=== PATIENT | male | born 1980 | race Caucasian/White ===

== ENCOUNTER 2023-08-30 07:16 | Emergency (ER) | payer BC ==
[2023-08-30 07:46] VITALS: BMI 34.7
[2023-08-30 08:47] LABS: BASO % 0.9 % (0-2.0); HEMATOCRIT 43.5 % (35.4-49); HEMOGLOBIN 14.6 GM/dL (11.7-16.9); LYMPH % 34.3 % (8-40); MCH 29.3 pg (25.7-33.7); MCHC 33.5 g/dl (32.0-35.9); MEAN CELL VOLUME 87.6 fl (80-96); MEAN PLT VOLUME 8.4 fl (7.5-11.1); NEUT % 53.8 % (42.8-82.8); PLATELET COUNT 204 10^3/uL (134-434); RBC 4.96 M/mm3 (4.00-5.60); WHITE BLOOD COUNT 4.5 K/mm3 (4.0-10.0)
[2023-08-30 08:49] LABS: POTASSIUM 3.9 mmol/L (3.5-5.1)
[2023-08-30 08:51] LABS: BLOOD UREA NITROGEN 7.4 mg/dL (7-18)
[2023-08-30 08:52] LABS: ALBUMIN 3.6 g/dl (3.4-5.0); CALCIUM 9.5 mg/dL (8.5-10.1)
[2023-08-30 08:55] LABS: PHOSPHOROUS 3.3 mg/dL (2.5-4.9)
[2023-08-30 08:57] LABS: BILIRUBIN,TOTAL 0.7 mg/dL (0.2-1); TOT PROT 7.5 g/dl (6.4-8.2)
[2023-08-30 09:33] VITALS: BP 155/104; PULSE 79; RESP 18; TEMP 98.1
== END 2023-08-30 10:30 | disposition left against medical advice (07) ==
LOC: JER 07:16
DX: R00.2 Palpitations (principal)
CPT/HCPCS: 36415; 71046-TC-FY; 80053; 83735; 84100; 84439; 84443; 84484; 85025; 93005; 93010; 99285-25